=== PATIENT | male | born 1975 | race Caucasian/White ===

== ENCOUNTER 2024-07-31 08:01 | Day surgery (SDC) | payer BC ==
[2024-07-30 09:21] VITALS: BMI 31.8
[2024-07-31] MEDS ORDERED: Bupivacaine/Epinephrine 0.25% 30 ML VIAL ONE (09:36)
[2024-07-31] MEDS ORDERED: CEFAZOLIN 2 GM VIAL ONE (09:36)
[2024-07-31] MEDS ORDERED: Indocyanine Green 25 MG/10 ML VIAL ONE (09:36)
[2024-07-31] MEDS ORDERED: PROPOFOL 20 ML ONE ×2 (09:47→09:49)
[2024-07-31] MEDS ORDERED: Lidocaine 1% PF 5 ML VIAL ONE ×2 (09:48)
[2024-07-31] MEDS ORDERED: Rocuronium Bromide 10 MG/ML (10ML VIAL) ONE (09:48)
[2024-07-31] MEDS ORDERED: fentaNYL 50 mcg/mL 1 mL Vial ONE ×4 (09:50→11:41)
[2024-07-31] MEDS ORDERED: Sevoflurane 250 ML INH ANEST BOTTLE ONE (10:03)
[2024-07-31] MEDS ORDERED: Dexamethasone 4 mg/ml Vial ONE (10:17)
[2024-07-31] MEDS ORDERED: ceFOXitin 1 GM VIAL ONE (10:22)
[2024-07-31] MEDS ORDERED: ePHEDrine Sulfate 50 MG/10 ML VIAL ONE (10:33)
[2024-07-31] MEDS ORDERED: Ondansetron PF 4 MG/2 ML Vial ONE (10:48)
[2024-07-31] MEDS ORDERED: SUGAMMADEX SODIUM 200 MG/2 ML VIAL ONE (10:48)
[2024-07-31] MEDS ORDERED: Ketorolac Tromethamine 30 MG (1 mL) VIAL ONE (10:49)
[2024-07-31] MEDS ORDERED: HYDROcodone/Acetaminophen 5/325 mg Tablet ONE (12:20)
== END 2024-07-31 13:20 | disposition home or self-care (01) ==
LOC: CSHSDC 08:01
PROVIDERS: ATTEND Surgery
PROC: 0FT44ZZ Resection of Gallbladder, Percutaneous Endoscopic Approach (ICD-10-PCS; principal; 2024-07-31)
DX: K80.10 Calculus of gallbladder with chronic cholecystitis without obstruction (principal); Z98.890 Other specified postprocedural states
CPT/HCPCS: 88304; C1889; J0694; J1100; J1885; J2405; J2704; J3010; S2900